=== PATIENT | female | born 1970 | race American Indian/Alaskan Native ===

== ENCOUNTER 2019-01-30 08:58 | Outpatient (CLI) | payer MEDICARE ==
[2019-01-30 10:31] LABS: Blood Urea Nitrogen 8 mg/dL (7-17)
--- NOTE | 2019-01-30 14:21 | Cat Scan Report ---
CT CHEST WITH CONTRAST: HISTORY: Restaging of breast cancer. COMPARISON: 07/31/18. TECHNIQUE: Helical CT in 1.25mm intervals following IV contrast. Sagittal and coronal reformatted images. FINDINGS: Thyroid gland: Normal. Tracheobronchial tree: Normal. Esophagus: Normal. Heart: Normal. Pericardium: Normal. Mediastinum: Normal. No evidence for mediastinal mass or adenopathy. Lung Nelson: There is subtle interstitial prominence in the left upper lobe which most likely represents radiation changes. The remaining lung parenchyma is within normal limits. No evidence for nodule, mass or parenchymal disease. Pleural Spaces: Normal. Musculoskeletal: There is severe scoliosis which is stabilized posteriorly by a Mclain maggie. No evidence for suspicious bony lesion or fracture. Bilateral breast prostheses are intact. No recurrent or breast mass or extrathoracic adenopathy is identified. IMPRESSION: Stable findings since 07/31/18. No evidence for disease recurrence or metastasis.
--- NOTE | 2019-01-30 14:25 | Cat Scan Report ---
CT ABDOMEN PELVIS WITH CONTRAST: HISTORY: Restaging of breast cancer, malignant neoplasm of female breast. COMPARISON: 07/31/18. TECHNIQUE: Helical CT in 1.25mm intervals following IV contrast. Sagittal and coronal reconstructions. FINDINGS: Liver: Normal. Biliary system: Cholecystectomy. Pancreas: Normal. Spleen: Normal. Kidneys/ureters/bladder: Normal. Adrenal glands: Normal. Aorta: Normal. Intestines: Normal. Appendix: Not identified, correlate with surgical history. Pelvic viscera: The previously described right adnexal hypodensity has decreased from 3.6 cm to 2.8 cm and presumably represents an ovarian cyst. The uterus and left adnexa are unremarkable. Ascites: None. Adenopathy: None. Musculoskeletal: Scoliosis is again noted. No evidence for suspicious bony lesion or fracture. IMPRESSION: Stable findings in the abdomen and pelvis since 07/31/18. No evidence for disease metastasis. Decreased size of the right ovarian cyst.
== END 2019-01-30 08:59 | disposition home or self-care (01) ==
LOC: CT 08:58
PROVIDERS: ATTEND Internal Medicine Hematology & Oncology
DX: N83.201 Unspecified ovarian cyst, right side (principal); C50.812 Malignant neoplasm of overlapping sites of left female breast; M41.9 Scoliosis, unspecified; K21.9 Gastro-esophageal reflux disease without esophagitis; J45.909 Unspecified asthma, uncomplicated
CPT/HCPCS: 36415; 71260; 74177; 82565; 84520; Q9967